=== PATIENT | female | born 1975 | race Caucasian/White ===

== ENCOUNTER → 2018-03-06 | Outpatient (CLI) | payer SELFPAY ==
--- NOTE | 2018-03-06 15:47 | RADIOLOGY REPORT (SQ) ---
EXAM DESCRIPTION: U/S OB 14+ TRNABD 1GES W/O DOP COMPLETED DATE/TIME: 03/06/2018 3:25 pm REASON FOR STUDY: Z34.82 ENCOUNTER FOR SUPRVSN OF NORMAL , SECOND TRIMESTER Z34.82 ENCOUNT ER FOR SUPRVSN OF NORMAL , SECOND TRI COMPARISON: None. TECHNIQUE: Static and Dynamic grayscale imaging performed of gravid uterus using transabdominal appr oach. Additional selected color Doppler and spectral images recorded. All stored on PACS. LIMITATIONS: None. FINDINGS: FETUSES SEEN:1 EGA: 21 weeks 2 days Calculated using BPD,FL,HC,AC documented on images. No discrepancy with clinica l dates. VIPIN: 07/15/2018 EFW: 435 grams PERCENTILE: Not available. JAMILA: 13.2 PLACENTA: Anterior GRADE: I PRESENTATION: Cephalic. ANATOMY: HEART RATE: 145 beats per minute. FOUR CHAMBER HEART: Visualized. THREE VESSEL CORD: Yes. CORD INSERTION: Visualized. KIDNEYS AND BLADDER: Visualized. Appear normal. STOMACH: Visualized. Appears normal. SPINE: Normal as visualized. BRAIN AND LATERAL VENTRICLES: Visualized. Appear normal. OTHER: No other significant finding. MATERNAL ADNEXA: Maternal ovaries not visualized. CERVICAL LENGTH: 4.1 cm Closed. OTHER: No other significant finding. IMPRESSION: LIVING INTRAUTERINE . ESTIMATED GESTATIONAL AGE 21 weeks 2 days NO VISUALIZED ANOMALIES. Trimester of : Second trimester - 13 weeks 1 day to 27 weeks 6 days. TECHNICAL DOCUMENTATION: JOB ID: [id number] [employer]- All Rights Reserved Reading location - IP/workstation name: [facility]
== END ==
LOC: RAD 15:09
PROVIDERS: ATTEND Nurse Practitioner
DX: Z34.82 Encounter for supervision of other normal pregnancy, second trimester (principal)
CPT/HCPCS: 76805

== ENCOUNTER 2018-06-19 16:50 | Outpatient (CLI) | payer MEDICAID ==
--- NOTE | 2018-06-19 18:12 | Non Stress Test Report ---
Non Stress Test Datetime Report Generated by CPN: 06/19/2018 18:12 DEMOGRAPHIC Test Number: 1 EGA NST: 36.4 INDICATION Indication for Study: Ordered by Provider Indication for Study (NST) Other: AMA VITAL SIGNS Pulse - NST: 109 RESP - NST: 18 NBPSYS NST: 135 NBPDIA NST: 83 MONITORING Monitor Explained: Monitor Explained; Test Explained; Patient Verbalized Understanding Time on Monitor: 06/19/2018 17:10 Time off Monitor: 06/19/2018 17:51 NST Duration: 41 NST INTERVENTIONS NST Interventions: PO Hydration; Reposition Patient Physician Notified NST: DR ALYSSA REVIEWED STRIP BABY A: [id number] BABY A Movement : Present Contraction Frequency : OCC FHR Baseline : 135 Accelerations : 15X15 Decelerations : None Variability : Moderate 6-25bpm NST Review: Meets Criteria for Reactive NST NST Results: Reactive NST REPORT Report Trigger: Send Report
== END 2018-06-19 18:07 | disposition home or self-care (01) ==
LOC: LC 16:50
PROVIDERS: ATTEND Obstetrics & Gynecology
PROC: 4A1HXCZ Monitoring of Products of Conception, Cardiac Rate, External Approach (ICD-10-PCS; principal; 2018-06-19)
DX: O09.523 Supervision of elderly multigravida, third trimester (principal); Z3A.36 36 weeks gestation of pregnancy
CPT/HCPCS: 59025

== ENCOUNTER → 2018-06-22 | Outpatient (CLI) | payer MEDICAID ==
--- NOTE | 2018-06-22 16:43 | RADIOLOGY REPORT (SQ) ---
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 TECHNIQUE: Dynamic and static ventura-scale images acquired of the thyroid gland. Selected additional c olor/power Doppler images recorded. All images stored to PACS. LIMITATIONS: None. FINDINGS: RIGHT LOBE: Right lobe thyroid is 4.6 x 1.5 x 1.7 cm in size. There are multiple well-cir cumscribed hypoechoic spongiform colloid cysts less than 1 cm in size, benign. LEFT LOBE: Left lobe thyroid is 4.5 x 1.9 x 1.2 cm in size. There are multiple well-circumscribed hy poechoic spongiform colloid less than 1 cm in size, benign. ISTHMUS: Normal thickness. There is a 2.5 x 1.4 cm cyst with a thick wall and surrounding color flow . Fine-needle aspirate of this lesion should be considered based on its size. OTHER: No other significant finding. IMPRESSION: Complex cystic thyroid isthmus 2.5 x 1.4 cm nodule for which fine-needle aspirate is rec ommended TECHNICAL DOCUMENTATION: JOB ID: [id number]- All Rights Reserved Reading location - IP/workstation name: [email or web address]
== END ==
LOC: RAD 13:39
PROVIDERS: ATTEND Advanced Practice Midwife
DX: O99.283 Endocrine, nutritional and metabolic diseases complicating pregnancy, third trimester (principal); E01.0 Iodine-deficiency related diffuse (endemic) goiter; Z3A.29 29 weeks gestation of pregnancy
CPT/HCPCS: 76536

== ENCOUNTER 2018-06-27 16:28 | Outpatient (CLI) | payer MEDICAID | END 2018-06-27 17:05 | disposition home or self-care (01) | LOC: LC 16:28 | PROVIDERS: ATTEND Obstetrics & Gynecology | PROC: 4A1HXCZ Monitoring of Products of Conception, Cardiac Rate, External Approach (ICD-10-PCS; principal; 2018-06-27) | DX: O10.913 Unspecified pre-existing hypertension complicating pregnancy, third trimester (principal); O09.523 Supervision of elderly multigravida, third trimester; Z3A.37 37 weeks gestation of pregnancy | CPT/HCPCS: 59025 ==

== ENCOUNTER 2018-06-30 07:13 | Inpatient (IN) | payer MEDICAID ==
[2018-06-30] MEDS ORDERED: OXYTOCIN/NORMAL SALINE 20 UNIT/1,000 ML RTUINJ IV PRN ×2 (07:45→16:18)
[2018-06-30] MEDS ORDERED: RINGERS SOLUTION,LACTATED 1,000 ML IV PRN (07:45)
[2018-06-30] MEDS ORDERED: RINGERS SOLUTION,LACTATED 300 ML IV ONE (07:45)
[2018-06-30] MEDS ORDERED: OXYTOCIN/NORMAL SALINE 20 UNIT/1,000 ML RTUINJ ONE (08:29)
[2018-06-30] MEDS ORDERED: MISOPROSTOL 0.2 MG TABLET ONE (08:29)
[2018-06-30] MEDS ORDERED: LIDOCAINE 1% INJ-PF (10 MG/ML) 30 ML SDV ONE (08:29)
[2018-06-30] MEDS ORDERED: OXYTOCIN 10 UNIT/ML VIAL ONE (08:29)
[2018-06-30] MEDS: RINGERS SOLUTION,LACTATED 1,000 ML IV PRN ×2 (08:41→12:31)
[2018-06-30 09:03] LABS: UR PRO/CREAT RATIO RESULT 0.4 mg/mg (0.0-0.2); URINE CREATININE 52.2 mg/dL (15-278); URINE PROTEIN 19.8 mg/dL (<12)
[2018-06-30 09:05] LABS: URINE AMPHETAMINES SCREEN NEGATIVE; URINE BARBITURATES SCREEN NEGATIVE; URINE BENZODIAZEPINES SCREEN NEGATIVE; URINE COCAINE SCREEN NEGATIVE; URINE MARIJUANA (THC) SCREEN NEGATIVE; URINE METHADONE SCREEN NEGATIVE; URINE PHENCYCLIDINE SCREEN NEGATIVE
[2018-06-30 09:19] LABS: ABSOLUTE LYMPHOCYTES (AUTO) 1.9 10^3/uL (0.5-4.7); ABSOLUTE MONOCYTES (AUTO) 0.3 10^3/uL (0.1-1.4); ABSOLUTE NEUT (AUTO) 4.7 10^3/uL (1.7-8.2); BASOPHILS % (AUTO) 0.7 % (0-2); EOSINOPHILS % (AUTO) 0.4 % (0-6); HEMATOCRIT 29.6 % (36.0-47.0); HEMOGLOBIN 10.3 g/dL (12.0-15.5); LYMPHOCYTES % (AUTO) 26.7 % (13-45); MEAN CORPUSCULAR HEMOGLOBIN 31.5 pg (27.0-33.4); MEAN CORPUSCULAR HGB CONC 34.8 g/dL (32.0-36.0); MEAN CORPUSCULAR VOLUME 91 fl (80-97); MONOCYTES % (AUTO) 4.9 % (3-13); PLATELET COUNT 232 10^3/uL (150-450); RED BLOOD COUNT 3.26 10^6/uL (3.72-5.28); RED CELL DISTRIBUTION WIDTH 13.7 % (11.5-14.0); SEGMENTED NEUTROPHILS % (AUTO) 67.3 % (42-78); TOTAL CELLS COUNTED % (AUTO) 100 %
[2018-06-30 09:38] LABS: ALANINE AMINOTRANSFERASE 10 U/L (9-52); ALKALINE PHOSPHATASE 127 U/L (38-126); ANION GAP 6 (5-19); ASPARTATE AMINO TRANSFERASE 19 U/L (14-36); BILIRUBIN,DIRECT 0.2 mg/dL (0.0-0.4); BILIRUBIN,TOTAL 0.3 mg/dL (0.2-1.3); BLOOD UREA NITROGEN 12 mg/dL (7-20); CALCIUM 8.7 mg/dL (8.4-10.2); CARBON DIOXIDE 25 mmol/L (22-30); CHLORIDE 106 mmol/L (98-107); GLUCOSE 77 mg/dL (75-110); POTASSIUM 4.1 mmol/L (3.6-5.0); SODIUM 136.8 mmol/L (137-145); TOTAL PROTEIN 5.4 g/dL (6.3-8.2); URIC ACID 5.1 mg/dL (2.5-7.0)
--- NOTE | 2018-06-30 15:04 | Admission Physical ---
Datetime Report Generated by CPN: 06/30/2018 15:04 CURRENT ADMISSION Chief Complaint: Signs/Symptoms Gestational HTN; Scheduled Induction of Labor Indication for Induction: Gestational HTN; Maternal Diabetes Admit Impression : Term, Intrauterine Admit Plan: Admit to Unit ALLERGIES Medication Allergies: No Medication Allergies: No Known Allergies (06/27/2018) Latex: No Latex Allergies OBSTETRICAL HISTORY EDC: 07/13/2018 00:00 : 18 Para: 2 Term: 2 : 0 SAB: 15 IAB: 0 Ectopic: 0 Livin Cesareans: 0 VBACs: 0 Multiple Births: 0 Gestational Diabetes: No Rh Sensitization: No Incompetent Cervix: No JD: No Infertility: No ART Treatment: No Uterine Anomaly: No IUGR: No Hx Previous C/S: No Macrosomia: No Hx Loss/Stillborn: Yes PIH: Yes Hx : No Placenta Previa/Abruption: No Depression/PP Depression: No PTL/PROM: No Post Hemorrhage: No Current Procedures: Ultrasound; NST SEE RECORDS Alcohol: No Marijuana : No Cocaine: No Other Illicit Drugs: No Cigarettes: Never Smoker. [id number] MEDICAL HISTORY Diabetes: No Blood Transfusion: No Pulmonary Disease (Asthma, TB): No Breast Disease: No Hypertension: No Fact Checker Surgery: No Heart Disease: No Hosp/Surgery: No Autoimmune Disorder: No Anesthetic Complications: No Abnormal Pap Smear: No Neuro/Epilepsy: No Psychiatric Disorders: No Other Medical Diseases: No Hepatitis/Liver Disease: No Significant Family History: No Varicosities/Phlebitis: No Trauma/Violence : No Thyroid Dysfunction: Unknown Medical History Comments: Large number of losses, never had dx for problem INFECTIOUS HISTORY Gonorrhea: No Genital Herpes: No Chlamydia: No Syphilis: No HIV/AIDS Exposure: No HPV: No PHYSICAL EXAM General: Normal HEENT: Normal Neurologic: Normal Thyroid: Deferred Heart: Normal Lungs: Normal Breast: Deferred Back: Normal Abdomen: Normal Genitourinary Exam: Deferred Extremities: Normal DTRs: Normal Pelvic Type: Adequate Vital Signs: Reviewed; Within Normal Limits VAGINAL EXAM Dilatation: 3 Effacement: 80 Station: -1 Contraction Comments: q2-3mins MEMBRANES Membranes: Bulging FETUS A EGA: 38.1 Monitoring: External US FHR- Baseline: 130 Variability: Moderate 6-25bpm Accelerations: 15X15 Decelerations: Early; Late; Variable FHR Category: Category II Estimated Weight (gm): 3400 Presentation: Vertex Admit Comment: ,0,15,2 with GHTN and GDM A1, GBS neg, Rh neg, admitted for IOL, now without complaints and pitocin infusing at 14mu/min. P:cont pitocin IOL, anticipate PLANS FOR LABOR AND DELIVERY Labor and Delivery: None Pain Management: Natural Feeding Preference: Formula Circumcision: N/A INFORMED CONSENT Assignment: Pio Sampson MD Signature: with User ID: Rosemarie : with User ID: [email or web address]
[2018-06-30] MEDS ORDERED: MAGNESIUM HYDROXIDE SUSP 30 ML UDCUP PO PRN (16:18)
[2018-06-30] MEDS ORDERED: DIPH/PERTUSS(ACELL)/TETANUS VAC/PF 0.5 ML SYR (>=10YO) IM PRN (16:18)
[2018-06-30] MEDS ORDERED: GLYCERIN/WITCH HAZEL LEAF 1 EACH MED..PAD TP PRN (16:18)
[2018-06-30] MEDS ORDERED: ZOLPIDEM TARTRATE 5 MG TABLET PO PRN (16:18)
[2018-06-30] MEDS ORDERED: PROMETHAZINE HCL INJ 25 MG/1 ML VIAL IV PRN (16:18)
[2018-06-30] MEDS ORDERED: PSEUDOEPHEDRINE HCL 30 MG TABLET PO PRN (16:18)
[2018-06-30] MEDS ORDERED: PROMETHAZINE HCL 25 MG SUPP.RECT PR PRN (16:18)
[2018-06-30] MEDS ORDERED: MEASLES,MUMPS&RUBELLA VACC/PF 0.5 ML VIAL SUBCUT PRN (16:18)
[2018-06-30] MEDS ORDERED: PROMETHAZINE HCL 25 MG TABLET PO PRN (16:18)
[2018-06-30] MEDS ORDERED: DIBUCAINE 1% OINTMENT 28 GM TP PRN (16:18)
[2018-06-30] MEDS ORDERED: ACETAMINOPHEN 650 MG SUPP.RECT PR PRN (16:18)
[2018-06-30] MEDS ORDERED: BENZOCAINE/MENTHOL AEROSOL SPRAY 56 ML TOP PRN (16:18)
[2018-06-30] MEDS ORDERED: ACETAMINOPHEN WITH CODEINE #3 TABLET PO PRN ×2 (16:18)
[2018-06-30] MEDS ORDERED: DIPHENHYDRAMINE HCL 25 MG CAPSULE PO PRN (16:18)
[2018-06-30] MEDS ORDERED: NA PHOS,M-B/NA PHOS,DI-BA (ADULT) 133 ML ENEMA PR PRN (16:18)
[2018-06-30] MEDS: DOCUSATE SODIUM 100 MG CAPSULE PO SCH (21:19)
[2018-06-30] MEDS: IBUPROFEN 800 MG TABLET PO SCH (21:19)
[2018-06-30] MEDS: FAMOTIDINE 20 MG TABLET PO SCH (21:19)
[2018-06-30] MEDS: FERROUS SULFATE 325 MG TABLET PO SCH (21:19)
[2018-07-01] MEDS: IBUPROFEN 800 MG TABLET PO SCH ×3 (05:36→22:50)
--- NOTE | 2018-07-01 09:40 | PDOC PROGRESS REPORT ---
Subjective-OB Progress Note for:: 07/01/18 Subjective: states bleeding slowing, pain controlled with current meds.no needs expressed Physical Exam (OB) Vital Signs: Temp Pulse Resp BP Pulse Ox 98.0 F 53 L 15 116/76 100 07/01/18 07:40 07/01/18 07:40 07/01/18 07:40 07/01/18 07:40 07/01/18 07:40 Intake & Output 06/30/18 07/01/18 07/02/18 06:59 06:59 06:59 Intake Total 1679 Balance 1679 Weight 79.9 kg - Abdomen Description: Soft, Round Hernia Present: No Fundal Description: Firm Fundal Height: u/u - u/2 - Abdominal Distension: No distension Tenderness: Nontender - Extremities Lower extremities: Murali's sign - neg Calf: Normal, Nontender Objective-Diagnostic Laboratory: 06/30/18 08:41 06/30/18 08:41 06/30/18 06/30/18 08:41 08:41 Sodium 136.8 L Potassium 4.1 Chloride 106 Carbon Dioxide 25 Anion Gap 6 BUN 12 Creatinine 0.62 Est GFR ( Amer) > 60 Est GFR (Non-Af Amer) > 60 Glucose 77 Uric Acid 5.1 Calcium 8.7 Total Bilirubin 0.3 AST 19 ALT 10 Alkaline Phosphatase 127 H Total Protein 5.4 L Albumin 3.0 L Blood Type O NEGATIVE Antibody Screen POSITIVE Assessment and Plan(PN) - Assessment and Plan (1) Anxiety Is this a current diagnosis for this admission?: Yes (2) Normal vaginal delivery Is this a current diagnosis for this admission?: Yes (3) Rh negative status during Is this a current diagnosis for this admission?: Yes - Time Spent with Patient Time with patient: Less than 15 minutes Medications reviewed and adjusted accordingly: Yes - Disposition Anticipated Discharge: Home Within: within 24 hours
[2018-07-01] MEDS: FAMOTIDINE 20 MG TABLET PO SCH ×2 (10:12→22:50)
[2018-07-01] MEDS: SENNOSIDES/DOCUSATE 8.6-50 MG 1 EACH TABLET PO SCH (10:12)
[2018-07-01] MEDS: FERROUS SULFATE 325 MG TABLET PO SCH ×2 (10:12→18:22)
[2018-07-01] MEDS: PRENATAL VITAMIN W DHA CAPSULE PO SCH (10:12)
[2018-07-01] MEDS: DOCUSATE SODIUM 100 MG CAPSULE PO SCH ×2 (10:12→18:22)
[2018-07-01 11:22] LABS: HEMATOCRIT 31.4 % (36.0-47.0); HEMOGLOBIN 10.8 g/dL (12.0-15.5); MEAN CORPUSCULAR HEMOGLOBIN 30.6 pg (27.0-33.4); MEAN CORPUSCULAR HGB CONC 34.4 g/dL (32.0-36.0); MEAN CORPUSCULAR VOLUME 89 fl (80-97); PLATELET COUNT 229 10^3/uL (150-450); RED BLOOD COUNT 3.53 10^6/uL (3.72-5.28); RED CELL DISTRIBUTION WIDTH 13.6 % (11.5-14.0); WHITE BLOOD COUNT 6.9 10^3/uL (4.0-10.5)
[2018-07-02] MEDS: IBUPROFEN 800 MG TABLET PO SCH ×2 (05:46→13:50)
--- NOTE | 2018-07-02 09:32 | PDOC DISCHARGE SUMMARY ---
Final Diagnosis Discharge Date: 07/02/18 - Final Diagnosis (1) Anxiety Is this a current diagnosis for this admission?: Yes (2) Normal vaginal delivery Is this a current diagnosis for this admission?: Yes (3) Rh negative status during Is this a current diagnosis for this admission?: Yes Discharge Data - Discharge Medication Prescriptions: Ibuprofen [Motrin 800 mg Tablet] 800 mg PO Q8HP PRN #60 tablet PRN Reason: Home Medications: No.25/Iron/FA #6/Dha [Prena1 Softgel] 1 tab PO DAILY 02/26/14 Famotidine [Pepcid 20 mg Tablet] 1 tab PO DAILY 06/27/18 Fluticasone Propionate [Flonase Nasal [place] 50 Mcg/[place] 16 gm] 2 pump XX DAILY 06/27/18 Ibuprofen [Motrin 800 mg Tablet] 800 mg PO Q8HP PRN #60 tablet 07/02/18 Reason(s) for Admission: Induction of Labor Procedures: NST Intrapartum Procedure(s): Spontaneous Vaginal Delivery - Diagnosis Test Laboratory: Temp Pulse Resp BP Pulse Ox 98.1 F 83 18 153/82 H 100 07/01/18 20:03 07/01/18 20:03 07/01/18 20:03 07/01/18 20:03 07/01/18 20:03 06/30/18 06/30/18 07/01/18 07:40 08:41 11:00 RBC 3.26 L 3.53 L Hgb 10.3 L 10.8 L Hct 29.6 L 31.4 L Urine Opiates Screen NEGATIVE - Discharge information/Instructions Discharge Activity: Balance Activity w/Rest, Pelvic Rest Discharge Diet: Regular Disposition: HOME, SELF-CARE Follow up with: [facility] in: 1, Weeks
[2018-07-02 10:18] VITALS: BP 126/78
[2018-07-02] MEDS: SENNOSIDES/DOCUSATE 8.6-50 MG 1 EACH TABLET PO SCH (11:02)
[2018-07-02] MEDS: PRENATAL VITAMIN W DHA CAPSULE PO SCH (11:03)
[2018-07-02] MEDS: FAMOTIDINE 20 MG TABLET PO SCH (11:03)
[2018-07-02] MEDS: FERROUS SULFATE 325 MG TABLET PO SCH (11:03)
[2018-07-02] MEDS: DOCUSATE SODIUM 100 MG CAPSULE PO SCH (11:03)
--- NOTE | 2018-07-10 11:33 | Delivery Summary ---
Del Sum A-C Datetime Report Generated by CPN: 07/10/2018 11:33 DELIVERY PERSONNEL DELIVERY PERSONNEL: [id number] Labor and Delivery Nurse:: MERY Bonner Labor and Delivery Nurse:: MERY Muir Tech/SOCIAL WORK ADMINISTRATOR: Esthela Garnica, TRAVEL NURSE MATERNAL INFORMATION Delivery Anesthesia: None Medications After Delivery: Pitocin Bolus-Please Comment Maternal Complications: None Complication Details: hypercoiled umbilical cord Provider Comments: TANVI VIABLE FEMALE WITH SPONTANEOUS CRY. CORD DOUBLE CLAMPED AND CUT. SPONTANEOUS PLACENTA WITH 3VC. VERY SMALL POSTERIOR VAGINAL FIRST DEGREE LACERATION NOT BLEEDING, NOT REPAIRED. NURSERY RN CALLED TO ASSESS BABY DUE TO WEAK CRY. MOTHER AND INFANT STABLE IN L_D#2. LABOR SUMMARY EDC: 07/13/2018 00:00 No. Babies in Womb: 1 LABOR INFORMATION Reason for Induction: Gestational Hypertension; Maternal Diabetes Onset of Labor: 06/30/2018 12:45 Complete Dilatation: 06/30/2018 15:53 Oxytocin: Induction Group B Beta Strep: neg Steroids Given: None Reason Steroids Not Administered: Not Applicable MEMBRANES Membranes Rupture Method: Artificial Rupture of Membranes: 06/30/2018 15:27 Length of Rupture (hr): 0.50 Amniotic Fluid Color: Clear Amniotic Fluid Amount: Moderate Amniotic Fluid Odor: Normal STAGES OF LABOR Stage 1 hr: 3 Stage 1 min: 8 Stage 2 hr: 0 Stage 2 min: 4 Stage 3 hr: 0 Stage 3 min: 5 Total Time in Labor hr: 3 Total Time in Labor min: 17 VAGINAL DELIVERY Episiotomy: None Laceration #1: Vaginal Laceration Extension #1: First Degree Laceration Repair: No BABY A INFORMATION Infant Delivery Date/Time: 06/30/2018 15:57 Method of Delivery: Vaginal Born in Route : No Forceps: N/A Vacuum Extraction: N/A Shoulder Dystocia : No PRESENTATION/POSITION BABY A Presentation: Cephalic Presentation: Cephalic PLACENTA INFORMATION BABY A Placenta Delivery Time : 06/30/2018 16:02 Placenta Method of Delivery: Spontaneous Placenta Status: Delivered SCORES BABY A Heart Rate 1 min: >100 bpm Resp Effort 1 min: Good Cry Reflex Irritability 1 min: Cough or Sneeze or Pulls Away Muscle Tone 1 min: Active Motion Color 1 min: Blue/Pale SCORE 1 MIN: 8 Heart Rate 5 min: >100 bpm Resp Effort 5 min: Good Cry Reflex Irritability 5 min: Cough or Sneeze or Pulls Away Muscle Tone 5 min: Active Motion Color 5 min: Blue/Pale Resuscitation Effort 5 min: Tactile Stimulation SCORE 5 MIN: 8 INFANT INFORMATION BABY A Gestational Age at Delivery: 38.0 Gestational Status: Early Term- 37- 38.6 Weeks Infant Outcome : Liveborn Infant Condition : Stable Sex: Female IDENTIFICATION BABY A Infant Verification Date/Time: 06/30/2018 16:40 ID Band Number: [id number] Mother's Name Verified: Yes Infant RN Verifying Infant: Sissy Vaughn RNC Additional Verifying Personnel: Larry Gonzalez RN WEIGHT/LENGTH BABY A Infant Birthweight (gm): 2712 Infant Weight (lb): 6 Weight (oz): 0 Infant Length (in): 19.00 Infant Length (cm): 48.26 CORD INFORMATION BABY A No. Cord Vessels: 3 ASSESSMENT BABY A Complications: Multiple Variable Decels Respirations: Appears Normal Skin to Skin: Yes Skin to Skin: Yes Drawer In/ALS Called : No Care By: D Bellavance RESUSCITATION BABY A Resuscitation Effort: pulse ox 72. Nsy called SIGNATURES Assignment: Pio Sampson MD Signature: with User ID: [email or web address] : with User ID: [email or web address] : I was personally available for consultation and serving as supervising physician for the P.
== END 2018-07-02 14:05 | disposition home or self-care (01) | DRG 806 ==
LOC: LR 07:13 → 2S 18:30
PROVIDERS: ADMIT Obstetrics & Gynecology Gynecology; ATTEND Obstetrics & Gynecology Gynecology
PROC: 10E0XZZ Delivery of Products of Conception, External Approach (ICD-10-PCS; principal; 2018-06-30)
PROC: 3E033VJ Introduction of Other Hormone into Peripheral Vein, Percutaneous Approach (ICD-10-PCS; 2018-06-30)
PROC: 10907ZC Drainage of Amniotic Fluid, Therapeutic from Products of Conception, Via Natural or Artificial Opening (ICD-10-PCS; 2018-06-30)
PROC: 4A1HX4Z Monitoring of Products of Conception, Cardiac Electrical Activity, External Approach (ICD-10-PCS; 2018-06-30)
DX: O13.4 Gestational [pregnancy-induced] hypertension without significant proteinuria, complicating childbirth (principal); O36.0930 Maternal care for other rhesus isoimmunization, third trimester, not applicable or unspecified; Z37.0 Single live birth; O99.344 Other mental disorders complicating childbirth; O24.429 Gestational diabetes mellitus in childbirth, unspecified control; F41.9 Anxiety disorder, unspecified; Z3A.38 38 weeks gestation of pregnancy; O76 Abnormality in fetal heart rate and rhythm complicating labor and delivery; O70.0 First degree perineal laceration during delivery
CPT/HCPCS: 36415; 80053; 80307; 82570; 83615; 84156; 84550; 85025; 85027; 86592; 86850; 86870; 86900; 86901; 94760; J2590; J3490